=== PATIENT | female | born 1995 | race African-American/Black ===

== ENCOUNTER 2024-09-22 20:16 | Emergency (ER) | payer OTHER ==
[2024-09-22 20:43] VITALS: BP 93/68; PULSE 119; RESP 20; TEMP 98.4; BMI 18.8
[2024-09-22 21:11] LABS: ABSOLUTE IMMATURE GRANULOCYTES 0.03 x10^3/uL (0.0-0.031); BASOPHILS # 0.02 x10^3/uL (0.01-0.08); EOSINOPHIL % 1.3 % (0.7-5.8); EOSINOPHILS # 0.12 x10^3/uL (0.04-0.36); HEMATOCRIT 33.5 % (34.1-44.9); HEMOGLOBIN 10.8 g/dL (11.2-15.7); MCHC 32.2 g/dl (32.2-35.5); MEAN CELL VOLUME 81.9 fl (79.4-94.8); MEAN PLT VOLUME 11.1 fl (9.4-12.3); MONOCYTE # 0.78 x10^3/uL (0.24-0.86); MONOCYTE % 8.4 % (4.7-12.5); PLATELET COUNT 638 x10^3/uL (182-369); RDW 15.4 % (12.1-16.5)
[2024-09-22] MEDS: SODIUM CHLORIDE 0.9% 500 ML INFUS.BAG IV ONE (21:38)
[2024-09-22] MEDS ORDERED: cefTRIAXone SODIUM 1 GM VIAL ONE (21:41)
[2024-09-22] MEDS: CEFTRIAXONE 1,000 MG in DEXTROSE 5%-WATER - 50 ML IVPB ONE (21:49)
[2024-09-22 21:52] LABS: EPITHELIAL CELLS 0-5 /hpf
[2024-09-22 21:53] LABS: BILIRUBIN,TOTAL 0.2 mg/dl (0.2-1); CALCIUM 8.7 mg/dl (8.5-10.1); CREATININE 0.5 mg/dl (0.6-1.3); POTASSIUM 4.2 mmol/L (3.5-5.1)
[2024-09-22] MEDS ORDERED: AZITHROMYCIN 500 MG VIAL IVPB ONE (22:06)
[2024-09-22] MEDS: AZITHROMYCIN IVPB 500 MG in DEXTROSE 5%-WATER - 250 ML IVPB ONE (22:12)
== END 2024-09-22 23:18 | disposition home or self-care (01) ==
LOC: FER 20:16
DX: J18.9 Pneumonia, unspecified organism (principal); N30.90 Cystitis, unspecified without hematuria; R50.9 Fever, unspecified; R53.83 Other fatigue
CPT/HCPCS: 36415; 71045-TC-FY; 80053; 81003; 81015; 83605; 85025; 87040; 87086; 99284-25